=== PATIENT | female | born 2000 | race Caucasian/White ===

== ENCOUNTER 2020-05-23 04:32 | Inpatient (IN) | payer MEDICAID, OTHER ==
[2020-05-23] VITALS (44 sets, daily range): BP systolic 0–144; BP diastolic 0–92
[~2020-05-23] VITALS: Ht 152.4 cm; Wt 62.6 kg
--- NOTE | 2020-05-23 04:40 | NUR ---
IMER ALSTON presented to unit via ambulatory from ED, accompanied by s/o , with c/o . IMER ALSTON weighed, gowned, voided, and to bed. EFHM and TOCO applied, VS taken. IMER ALSTON oriented to bed controls, call light, TV, heat, and A/C controls.
[2020-05-23 05:06] LABS: BILIRUBIN,URINE NEGATIVE (NEGATIVE); CLARITY,URINE CLEAR; COLOR,URINE YELLOW; GLUCOSE, URINE (UA) NEGATIVE (NEGATIVE); KETONES,URINE TRACE (NEGATIVE); LEUKOCYTE ESTERASE ,URINE 1+ (NEGATIVE); NITRITE,URINE NEGATIVE (NEGATIVE); PROTEIN,URINE NEGATIVE (NEGATIVE)
[2020-05-23 05:20] LABS: BACTERIA,URINE TRACE /HPF
[2020-05-23] MEDS ORDERED: D5 LR IV SOLUTION 1,000 ML IV SCH (07:56)
[2020-05-23] MEDS ORDERED: D5 LR IV SOLUTION 1,000 ML IV ONE (07:57)
[2020-05-23] MEDS ORDERED: MINERAL OIL CONCENTRATE 99.9% 15 ML UDC TOP PRN (08:00)
[2020-05-23 08:45] LABS: BASOPHILS % (AUTO) 0 % (0-10); EOSINOPHILS # (AUTO) 0.1 10^3/uL (0.0-0.3); EOSINOPHILS % (AUTO) 0 % (0-10); HEMATOCRIT 33 % (35-52); HEMOGLOBIN 10.6 g/dL (11.5-16.0); LYMPHOCYTES # (AUTO) 1.4 10^3/uL (1.0-4.0); LYMPHOCYTES % (AUTO) 9 % (12-44); MEAN CORPUSCULAR HEMOGLOBIN 26 pg (25-34); MEAN CORPUSCULAR HGB CONC 32 g/dL (32-36); MEAN CORPUSCULAR VOLUME 81 fL (80-99); MEAN PLATELET VOLUME 9.9 fL (9.0-12.2); MONOCYTES # (AUTO) 0.8 10^3/uL (0.0-1.0); MONOCYTES % (AUTO) 5 % (0-12); NEUTROPHILS % (AUTO) 86 % (42-75); PLATELET COUNT 326 10^3/uL (130-400); WHITE BLOOD COUNT 16.4 10^3/uL (4.3-11.0)
--- NOTE | 2020-05-23 09:13 | History & Physical-OB ---
OB - Chief Complaint & HPI Date/Time Date of Admission: Date of Admission: Date seen by a Provider: May 23, 2020 Time Seen by a Provider: 07:40 Chief Complaint/History OB-Reason for Admission/Chief: Onset of Labor Hx : 1 Hx Para: 0 Expected Date of Delivery: May 27, 2020 Gestational Age in Weeks: 39 Gestational Age in Days: 3 History of Labs A positive, antibody neg, RI. HIV/HepB/RPR neg. GC/chlamydia neg. GBS neg. Allergies and Home Medications Allergies Coded Allergies: No Known Drug Allergies (Unverified , 05/23/20) Patient Home Medication List Home Medication List Reviewed: Yes OB - History Hx of Present Care: Yes Ultrasounds: Normal mid trimester US Obstetrical Complications: None Information Induced Hypertension: No Maternal Gestational Diabetes: No Hemorrhage: No Obstetrical History Hx : 1 Hx Para: 0 Hx # Term Pregnancies: 0 Hx # Pregnancies: 0 Number of Living Children: 0 Hx Termination: No Hx Total # of Abortions (Spona: 0 Hx Multiple Gestation: No Hx Ectopic : No Hx Stillbirth: No Hx Complication: No Hx Induced Hypertens: No Hx Maternal Gestational Diabet: No Hx Hemorrhage: No Delivery History Hx Dystocia: No Hx Forceps Assisted Delivery: No Hx Vacuum Extraction Assisted: No Hx Placenta Abnormality: No Hx Distress: No Hx Large For Gestational Age I: No Hx Small for Gestational Age I: No Hx Section: No Hx Vaginal Delivery Post C-Sec: No Hx Blood Disorders: No Adverse Rxn to Tranfusion: No Patient Past Medical History PMHx: Denies SurgHx: Denies Social History/Family History HIV/AIDS: No Recent Infectious Disease Expo: No Sexually Transmitted Disease: No Alcohol Use: Denies Use Recreational Drug Use: No Smoking Cessation: Never smoker 2nd Hand Smoke Exposure: No Immunizations Tetanus Booster (TDap): Less than 5yrs (03/16/20) Date of Influenza Vaccine: Apr 22, 2020 Rubella: immune RPR/VDRL: Negative GBS Status: Negative HBsAG: Negative OB - Admission Exam Physical Exam Vitals: Vital Signs 05/23/20 07:00 Temp 36.8 Pulse 97 Resp 18 B/P (MAP) 115/71 (86) Pulse Ox 97 O2 Delivery Room Air HEENT: NCAT Abdomen: Non tender Extremities: Normal Cervical Dilatation: 3cm Membranes: Intact Heart Rate: 130's Accelerations: Accelerations Present Fpc Variability: Average (6-25) Contractions on Admission: < 5 Minutes Apart Labs Laboratory Tests Test 05/23/20 04:45 05/23/20 08:15 05/23/20 08:35 Range/Units Urine Color YELLOW Urine Clarity CLEAR Urine pH 6.0 5-9 Urine Specific [place] 1.015 L 1.016-1.022 Urine Protein NEGATIVE NEGATIVE Urine Glucose (UA) NEGATIVE NEGATIVE Urine Ketones TRACE H NEGATIVE Urine Nitrite NEGATIVE NEGATIVE Urine Bilirubin NEGATIVE NEGATIVE Urine Urobilinogen 0.2 < = 1.0 MG/DL Urine Leukocyte Esterase 1+ H NEGATIVE Urine RBC (Auto) NEGATIVE NEGATIVE Urine RBC NONE /HPF Urine WBC 2-5 /HPF Urine Squamous Epithelial Cells 10-25 H /HPF Urine Crystals NONE /LPF Urine Bacteria TRACE /HPF Urine Casts NONE /LPF Urine Mucus NEGATIVE /LPF Urine Culture Indicated NO White Blood Count 16.4 H 4.3-11.0 10^3/uL Red Blood Count 4.10 3.80-5.11 10^6/uL Hemoglobin 10.6 L 11.5-16.0 g/dL Hematocrit 33 L 35-52 % Mean Corpuscular Volume 81 80-99 fL Mean Corpuscular Hemoglobin 26 25-34 pg Mean Corpuscular Hemoglobin Concent 32 32-36 g/dL Red Cell Distribution Width 14.6 H 10.0-14.5 % Platelet Count 326 130-400 10^3/uL Mean Platelet Volume 9.9 9.0-12.2 fL Immature Granulocyte % (Auto) 1 % Neutrophils (%) (Auto) 86 H 42-75 % Lymphocytes (%) (Auto) 9 L 12-44 % Monocytes (%) (Auto) 5 0-12 % Eosinophils (%) (Auto) 0 0-10 % Basophils (%) (Auto) 0 0-10 % Neutrophils # (Auto) 14.0 H 1.8-7.8 10^3/uL Lymphocytes # (Auto) 1.4 1.0-4.0 10^3/uL Monocytes # (Auto) 0.8 0.0-1.0 10^3/uL Eosinophils # (Auto) 0.1 0.0-0.3 10^3/uL Basophils # (Auto) 0.0 0.0-0.1 10^3/uL Immature Granulocyte # (Auto) 0.1 0.0-0.1 10^3/uL OB - Assessment/Plan/Diagnosis Assessment Assessment: active labor Admission Dx Term intrauterine at 39 weeks gestation Active labor GBS negative Admission Status: Inpatient Order (span 2 midnights) Reason for Inpatient Admission: Labor, delivery and course Plan Plan: Expectant Management BATSHEVA RAE MD May 23, 2020 09:13
[2020-05-23] MEDS ORDERED: fentaNYL 2 mcg/ml BUPIVA 0.125 100 ML ONE (09:24)
[2020-05-23] MEDS ORDERED: LACTATED RINGERS 1,000 ML IV ONE (09:35)
[2020-05-23] MEDS ORDERED: fentaNYL 2 mcg/ml BUPIVA 0.125 100 ML IV SCH (09:35)
[2020-05-23] MEDS ORDERED: BUPIVACAINE 0.25% 30 ML (SENSORCAINE) VIAL ONE (09:36)
[2020-05-23] MEDS ORDERED: fentaNYL INJECTION 100 MCG/2 ML AMP ONE (09:36)
[2020-05-23 09:39] LABS: BASOPHILS % (MANUAL) 1 %; EOSINOPHILS % (MANUAL) 1 %; LYMPHOCYTES % (MANUAL) 13 %; MONOCYTES % (MANUAL) 5 %; NEUTROPHILS % (MANUAL) 80 %; RBC MORPH NORMAL
[2020-05-23] MEDS ORDERED: NALOXONE 0.4 MG/ML 1 ML (NARCAN) VIAL IV PRN (09:45)
[2020-05-23] MEDS ORDERED: diphenhydrAMINE 50 MG/ML INJ (BENADRYL) IV PRN (09:45)
[2020-05-23] MEDS ORDERED: ONDANSETRON 4 MG/2 ML (SDV) Z0FRAN IV PRN (09:45)
[2020-05-23] MEDS ORDERED: CATHETER FLUSH 10 ML SYR IV PRN (09:45)
[2020-05-23] MEDS ORDERED: OXYTOCIN PRE-MIX DRIP 500 ML IV ONE ×2 (13:23→14:41)
[2020-05-23] MEDS ORDERED: LIDOCAINE/EPI 2% 1:200,00 (XYLOCAINE) 10 ML VIAL ONE (13:23)
[2020-05-23] MEDS ORDERED: CATHETER FLUSH 10 ML SYR IV SCH ×2 (14:00→22:00)
[2020-05-23] MEDS: OXYTOCIN PRE-MIX DRIP 500 ML IV SCH ×2 (14:08→14:42)
--- NOTE | 2020-05-23 14:52 | OB Labor & Delivery Record ---
Vag Delivery Note Vag Delivery Note Date of Delivery: 05/23/20 Preoperative Diagnosis: Arleen Wolf is a 19 /Para 1 / 0, Gestational Age (wks) 40w0d Postoperative Diagnosis: Same Surgeon: BATSHEVA RAE Anesthesia: Epidural Delivery Type: Findings: Viable female , apgars 8/9, weight 6#13 Lacerations: bilateral periurethral lacerations Intact placenta with 3 vessel cord. No nuchal cord, body cord or shoulder dystocia Estimated Blood Loss: 300 ml Complications: None Condition: Stable Description of Procedure: The patient is a 19 year old female who presented in active labor. She was admitted and informed consent was obtained. Her labor course was unremarkable. She progressed to complete dilatation and began to push. She was then set up for delivery. The infant's head was delivered atraumatically in the ANAHI position. The shoulders and remainder of the infant's body were then delivered without difficulty. Upon delivery, the was vigorous and placed on maternal abdomen. After a delay, the cord was doubly clamped and cut and the was handed off to the pediatric staff. An intact placenta with 3-vessel cord delivered via [place] and there was found to be minimal bleeding.~ Vigorous fundal massage was performed and the fundus was found to be firm. IV oxytocin was given. Examination of the vagina and perineum revealed bilateral periurethral lacerations repaired in simple running fashion with 3-0 rapide suture and bilateral first degree vaginal wall lacerations near introitus repaired in simple running fashion with 3-0 rapide suture. Following the repair, sponge, instrument and needle counts were correct. Mom and baby were both in stable condition in the labor suite. Vitals - Labs Vital Signs - I&O Vital Signs Date Time Temp Pulse Resp B/P (MAP) Pulse Ox O2 Delivery O2 Flow Rate FiO2 05/23/20 14:05 68 18 144/78 (100) Room Air 05/23/20 13:50 98 18 143/72 (95) Room Air 05/23/20 13:35 87 18 122/77 (92) Room Air 05/23/20 13:20 111 18 134/92 (106) Room Air 05/23/20 13:05 37.2 81 18 117/74 (88) Room Air 05/23/20 11:12 91 18 104/61 (75) 98 Room Air 05/23/20 11:08 90 18 103/58 (73) 98 Room Air 05/23/20 11:02 80 18 108/64 (79) 98 Room Air 05/23/20 10:58 77 18 99/65 (76) 99 Room Air 05/23/20 10:52 102 18 94/68 (77) 100 Room Air 05/23/20 10:42 83 18 112/59 (76) 98 Room Air 05/23/20 10:38 95 18 139/58 (85) 99 Room Air 05/23/20 10:28 92 18 108/64 (79) 98 Room Air 05/23/20 10:19 101 18 118/72 (87) 98 Room Air 05/23/20 10:16 111 18 111/66 (81) 97 Room Air 05/23/20 10:13 108 18 103/60 (74) 97 Room Air 05/23/20 10:10 114 18 102/65 (77) 97 Room Air 05/23/20 10:07 117 18 112/66 (81) 97 Room Air 05/23/20 10:04 121 18 115/72 (86) 98 Room Air 05/23/20 10:01 112 18 116/66 (83) 97 Room Air 05/23/20 09:58 109 18 113/55 (74) 98 Room Air 05/23/20 09:55 97 18 112/58 (76) 05/23/20 09:52 105 18 120/65 (83) 98 Room Air 05/23/20 07:00 36.8 97 18 115/71 (86) 97 Room Air 05/23/20 06:00 36.8 73 18 97 Room Air 05/23/20 05:08 37.0 0 18 Room Air Labs Laboratory Tests 05/23/20 04:45: Urine Color YELLOW, Urine Clarity CLEAR, Urine pH 6.0, Urine Specific [place] 1.015L, Urine Protein NEGATIVE, Urine Glucose (UA) NEGATIVE, Urine Ketones TRACEH, Urine Nitrite NEGATIVE, Urine Bilirubin NEGATIVE, Urine Urobilinogen 0.2, Urine Leukocyte Esterase 1+H, Urine RBC (Auto) NEGATIVE, Urine RBC NONE, Urine WBC 2-5, Urine Squamous Epithelial Cells 10-25H, Urine Crystals NONE, Urine Bacteria TRACE, Urine Casts NONE, Urine Mucus NEGATIVE, Urine Culture Indicated NO 05/23/20 08:15: White Blood Count 16.4H, Red Blood Count 4.10, Hemoglobin 10.6L, Hematocrit 33L, Mean Corpuscular Volume 81, Mean Corpuscular Hemoglobin 26, Mean Corpuscular Hemoglobin Concent 32, Red Cell Distribution Width 14.6H, Platelet Count 326, Mean Platelet Volume 9.9, Immature Granulocyte % (Auto) 1, Neutrophils (%) (Auto) 86H, Lymphocytes (%) (Auto) 9L, Monocytes (%) (Auto) 5, Eosinophils (%) (Auto) 0, Basophils (%) (Auto) 0, Neutrophils # (Auto) 14.0H, Lymphocytes # (Auto) 1.4, Monocytes # (Auto) 0.8, Eosinophils # (Auto) 0.1, Basophils # (Auto) 0.0, Immature Granulocyte # (Auto) 0.1, Neutrophils % (Manual) 80, Lymphocytes % (Manual) 13, Monocytes % (Manual) 5, Eosinophils % (Manual) 1, Basophils % (Manual) 1, Blood Morphology Comment NORMAL 05/23/20 08:35: BATSHEVA RAE MD May 23, 2020 14:52
[2020-05-23] MEDS ORDERED: WITCH HAZEL(TUCKS) 40 EA JAR TOP PRN (15:15)
[2020-05-23] MEDS ORDERED: TETANUS,DIPTH,PERTUSS P/F (BOOSTRIX) 0.5 ML VIAL IM ONE (15:15)
[2020-05-23] MEDS ORDERED: BENZOCAINE/MENTHOL (DERMOPLAST) 60 ML CAN TP PRN (15:15)
[2020-05-23] MEDS ORDERED: MEASLES,MUMPS,RUBELLA 1 EA INJ SQ ONE (15:15)
[2020-05-23] MEDS: IBUPROFEN 600 MG (MOTRIN) TAB PO SCH ×2 (15:48→20:56)
--- NOTE | 2020-05-23 18:00 | NUR ---
Pericare performed, pt assisted to standing at side of bed. Pt ambulates to bathroom without incident. +void. Pericare demonstrated. Pt assisted to wheelchair. Transferred to room 310 along with S.O., , and all personal belongings. Pt and S..O. oriented to room and call light. packet explained. No questions or concerns voiced at this time
[2020-05-23] MEDS: DOCUSATE SODIUM 100 MG (COLACE) CAP PO SCH (20:55)
[2020-05-24] MEDS: IBUPROFEN 600 MG (MOTRIN) TAB PO SCH ×3 (02:00→14:21)
[2020-05-24 04:30] VITALS: BP 121/55
[2020-05-24 06:39] LABS: BASOPHILS % (AUTO) 0 % (0-10); EOSINOPHILS # (AUTO) 0.1 10^3/uL (0.0-0.3); EOSINOPHILS % (AUTO) 1 % (0-10); HEMATOCRIT 26 % (35-52); HEMOGLOBIN 8.1 g/dL (11.5-16.0); LYMPHOCYTES # (AUTO) 2.3 10^3/uL (1.0-4.0); LYMPHOCYTES % (AUTO) 17 % (12-44); MEAN CORPUSCULAR HEMOGLOBIN 26 pg (25-34); MEAN CORPUSCULAR HGB CONC 31 g/dL (32-36); MEAN CORPUSCULAR VOLUME 82 fL (80-99); MEAN PLATELET VOLUME 9.7 fL (9.0-12.2); MONOCYTES # (AUTO) 1.3 10^3/uL (0.0-1.0); MONOCYTES % (AUTO) 9 % (0-12); NEUTROPHILS # (AUTO) 9.8 10^3/uL (1.8-7.8); NEUTROPHILS % (AUTO) 72 % (42-75); PLATELET COUNT 248 10^3/uL (130-400); WHITE BLOOD COUNT 13.6 10^3/uL (4.3-11.0)
--- NOTE | 2020-05-24 07:35 | Anesthesia-Regional Post-Op ---
Regional Patient Condition Mental Status: Alert, Oriented x3 Circulation: Same as Pre-Op Headache: Absent Sensation: Full Recovery Motor Block: Absent Post Op Complications Complications None Follow Up Care/Instructions Patient Instructions None needed. Anesthesia/Patient Condition Patient is doing well, no complaints, stable vital signs, no apparent adverse anesthesia problems. No complications reported per nursing. D/C home per [facility] Criteria: No SHAY HEARD COLLAR SETTER OVERLOCK May 24, 2020 07:35
[2020-05-24 08:30] VITALS: BP 107/57
--- NOTE | 2020-05-24 08:30 | NUR ---
A.M. ASSESSMENT COMPLETED. VSS. CARING FOR IN ROOM. GOOD INTERACTION NOTED.
[2020-05-24] MEDS: DOCUSATE SODIUM 100 MG (COLACE) CAP PO SCH (08:39)
[2020-05-24] MEDS ORDERED: FERROUS SULF 325 MG (IRON) TAB PO SCH (08:45)
[2020-05-24] MEDS ORDERED: IBUP-844 PO (08:58)
[2020-05-24] MEDS ORDERED: FERR325T18 PO (08:58)
--- NOTE | 2020-05-24 09:03 | Discharge Summary ---
Discharge Summary Hospital Course Hospital Course Date of Admission: May 23, 2020 at 08:48 Admission Diagnosis : 1. @ 40 week GA with spontaneous labor Family Physician/Provider: Sean Date of Discharge: 05/24/20 Discharge Diagnosis: 1. 40 week GA with spontaneous labor s/p 2. anemia secondary to delivery 3. 1st degree laceration and bilateral periurethral lacerations - repaired Hospital Course: Routine course. Labs and Pending Lab Test: Laboratory Tests 05/24/20 06:27: White Blood Count 13.6H, Red Blood Count 3.15L, Hemoglobin 8.1#L, Hematocrit 26L , Mean Corpuscular Volume 82, Mean Corpuscular Hemoglobin 26, Mean Corpuscular Hemoglobin Concent 31L, Red Cell Distribution Width 14.7H, Platelet Count 248, Mean Platelet Volume 9.7, Immature Granulocyte % (Auto) 1, Neutrophils (%) (Auto) 72, Lymphocytes (%) (Auto) 17, Monocytes (%) (Auto) 9, Eosinophils (%) (Auto) 1, Basophils (%) (Auto) 0, Neutrophils # (Auto) 9.8H, Lymphocytes # (Auto) 2.3, Monocytes # (Auto) 1.3H, Eosinophils # (Auto) 0.1, Basophils # (Auto) 0.0, Immature Granulocyte # (Auto) 0.1 Assessment/Pt DC Instructions Rx for Iron sulfate 325mg daily in addition to vitamin. F/u with Dr. Estrada in 6 weeks. Discharge Diet: No Restrictions Activity as Tolerated: Yes Discharge Physical Examination Allergies: Coded Allergies: No Known Drug Allergies (Unverified , 05/23/20) General Appearance: No Apparent Distress, WD/WN HEENT: PERRL/EOMI Skin: Normal Color, Warm/Dry Neurologic/Psychiatric: Alert, Oriented x3, Normal Mood/Affect Copy Copies To 1: BATSHEVA ESTRADA MD Clinical Quality Measures DVT/VTE Risk/Contraindication: Risk Factor Score Per Nursin RFS Level Per Nursing on Admit: 1=Low/No VTE PPX NICKOLAS GALLO DO May 24, 2020 09:03
[2020-05-24 13:00] VITALS: BP 113/65
--- NOTE | 2020-05-24 13:00 | NUR ---
EATING STORK MEAL. CONTINUES TO DO WELL.
--- NOTE | 2020-05-24 16:40 | NUR ---
DISCHARGE INSTRUCTIONS REVIEWED WITH COPY TO PT. STATES UNDERSTANDING OF ALL INSTRUCTIONS AND NEED TO F/U SCHEDULED AND NEEDED.
[2020-05-24 17:00] VITALS: BP 113/65
--- NOTE | 2020-05-24 17:00 | NUR ---
DISMISSED AMB FROM [facility] WITH IN STABLE CONDITION TO FAMILY CAR ACC BY SRosemarie AND [facility] STAFF.
--- NOTE | 2020-05-25 09:46 | Physician Query Clarification ---
PQ-Further Specificity Admission/Discharge Admission Date: May 23, 2020 at 08:48 Discharge Date: May 24, 2020 at 17:00 Dr. Gallo, The medical record reflects the following clinical scenario: History/Risk Factors: OB delivery, anemia secondary to delivery Clinical Findings: Hgb/Hct 8.08/02 Treatment: Iron sulfate 325 mg daily addition to vitamin Question: Can you further specify type of anemia secondary to delivery per the clinical indicators above? Please document a response in the Progress Notes or Discharge Summary. 1. acute blood loss anemia secondary to delivery 2. anemia secondary to delivery not further specified 3. Other, with explanation of the clinical findings. 4. Clinically undetermined, no explanation for the clinical findings. PHYSICIAN RESPONSE Can you specify per above: Other, explanation/clinical finding Explanation/Clinical Findings Patient had mild anemia of prior to delivery with acute blood loss anemia secondary to delivery. Please remember a lack of response to the above will prompt a phone page by CDI/Coding staff. In responding to this query, please exercise your independent professional judgment. The purpose of this communication is to more accurately reflect the complexity of your patients condition. The fact that a question is asked does not imply that any particular answer is desired or expected. Thank you for your timely response to this clarification. Requestors name: Marcia THIS PHYSICIAN QUERY FORM IS A PERMANENT PART OF THE MEDICAL RECORD MARCIA RIVERA May 25, 2020 09:46 NICKOLAS GALLO DO May 26, 2020 15:49
== END 2020-05-24 17:00 | disposition home or self-care (01) | DRG 806 ==
LOC: WSo 04:32 → LDRP 04:41 → WSo 08:48 → LDRP 08:48
PROVIDERS: ADMIT Family Medicine; ATTEND Family Medicine
PROC: 10E0XZZ Delivery of Products of Conception, External Approach (ICD-10-PCS; principal; 2020-05-23)
PROC: 0HQ9XZZ Repair Perineum Skin, External Approach (ICD-10-PCS; 2020-05-23)
PROC: 0UQMXZZ Repair Vulva, External Approach (ICD-10-PCS; 2020-05-23)
DX: O48.0 Post-term pregnancy (principal); D62 Acute posthemorrhagic anemia; Z37.0 Single live birth; O70.0 First degree perineal laceration during delivery; O71.82 Other specified trauma to perineum and vulva; O90.81 Anemia of the puerperium; D64.9 Anemia, unspecified; Z3A.40 40 weeks gestation of pregnancy
CPT/HCPCS: 36415; 81000; 85007; 85025; 85027; 86850; 86900; 86901; 87635; 99212